=== PATIENT | male | born 2000 | race Caucasian/White ===

== ENCOUNTER 2023-12-23 14:29 | Emergency (ER) | payer OTHER, SELFPAY ==
[2023-12-23 14:41] VITALS: BP 102/48; PULSE 120; RESP 18; TEMP 38.2; O2SAT 96; BMI 21.9
--- NOTE | 2023-12-23 14:42 | ED_ITS ---
HPI - General Adult General Chief complaint: Upper Respiratory Symptoms Stated complaint: headache, body aches Time Seen by Provider: 12/23/23 17:52 Source: patient Mode of arrival: ambulatory Limitations: no limitations History of Present Illness HPI narrative: Patient is a 23-year-old male who presents emergency department with 3-4 days of body aches, intermittent headache, nonproductive cough, sneezing, sore throat, nausea without vomiting. Denies vision changes, neck pain, neck stiffness, dizziness, lightheadedness, chest pain, shortness of breath, abdominal pain, numbness or tingling of the extremities. Denies known sick contacts. Related Data Allergies Allergy/AdvReac Type Severity Reaction Status Date / Time No Known Allergies Allergy Verified 12/23/23 14:41 Review of Systems Review of Systems: Yes all other systems are reviewed and are negative [facility] Past Medical History Attestation statement: The following information was validated with the patient. Source: old records reviewed Social History Social History Advance Directives: No Advance Directives Information Provided: No Physical Exam ED Vital Signs: Vital Signs - 24 hr 12/23/23 14:41 12/23/23 17:25 Temperature 100.8 F H 98.9 F Pulse Rate 120 H 106 H Respiratory Rate 18 20 Blood Pressure 102/48 L 116/69 Pulse Oximetry 96 97 Oxygen Delivery Method Room Air Room Air BMI result Body Mass Index 21.9 Appearance: Alert.?Oriented to person, place and time. No acute distress.?Normal affect. Eyes: Pupils equal, round and reactive to light.? ENT: Pharynx erythematous without exudates. Uvula midline. No trismus. No drooling. TM normal bilaterally. Neck: Normal inspection.? Neck supple.??No cervical lymphadenopathy CVS: Heart sounds normal. Normal heart rate and rhythm.? Pulses normal.?? Respiratory: No respiratory distress.? Lung sounds clear to auscultation ervin aterally?? Abdomen: Soft and non-tender. Normoactive bowel sounds. No pulsatile mass.?? Skin: Skin warm and dry.? Normal skin color.? Normal skin turgor.?? Extremities: No lower extremity edema.? No calf ttp? Neuro: Moves all extremities spontaneously. Sensation intact bilaterally. CN II- XII intact. No focal neuro deficits. Ambulates with normal steady gait. Course Course Course Narrative: TIMMY- 23-year-old male presents for evaluation of body aches, cough, headache, fevers. Plan for viral swabs. Medications Administered Discontinued Medications Generic Name Dose Route Start Last Admin Trade Name Aramis PRN Reason Stop Dose Admin Acetaminophen 975 mg 12/23/23 14:44 12/23/23 14:46 Acetaminophen 325 Mg Tablet PO 12/23/23 14:45 975 mg ONCE ONE Administration Medical Decision Making Medical Decision Making [facility] Narrative: Patient is a 23 year old male presenting for evaluation of upper respiratory symptoms. COVID-19 testing negative. Influenza A testing positive, given duration of symptoms would be outside of the window to start Tamiflu. At this time history and physical exam not consistent with ACS/PE/pneumonia. Well- appearing, nontoxic or tachypnea/hypoxia. Initially febrile and tachycardic which improved after medicated, do not suspect bacterial sepsis infection but rather viral etiology with positive influenza. Speaking clear full sentences, ambulatory with steady gait. Discussed conservative treatment including rest, hydration, Tylenol/ibuprofen as needed for fever and body aches, saline nasal spray, humidifier, [id number] cold medication. Advised to follow-up with primary care provider as needed, discussed reasons to return back to the emergency department. All questions were answered. Patient discharged home in stable condition. Differential Diagnosis Differential Diagnoses: The differential diagnosis associated with the presentation includes ( See narrative above) Admission/Observation Consideration of admission/observation: Escalation of care including admission/observation considered ( see narrative above) Lab Data [facility] Lab Attestation statement: I reviewed the patient's lab results. ( see narrative above) Labs: Lab Results 12/23/23 Range/Units 17:22 COVID-19 (DANIEL) Negative (Negative) COVID-19 Clin Com See Note Influenza Type A (MARINA) Positive A (Negative) Influenza Type B (MARINA) Negative (Negative) Influenza A & B Note See Note External Record Review External record reviewed: Outpatient record Prescription Management I considered prescription management with: Pain Medication ( acetaminophen/ibuprofen) and Antiviral Discharge Plan Discharge Clinical Impression: Influenza Patient Disposition: Home, Self-Care Instructions: Influenza (ED) Additional Instructions: Be sure to rest, stay well hydrated drinking plenty of fluids, eat small frequent meals. Tylenol/ibuprofen can be used as needed for fever/pain. [id number] cold medications may be helpful as well for symptoms. Saline nasal spray, humidifier may be helpful for nasal congestion. You may return to the emergency department with any new or worsening symptoms or concerns. Follow-up with your primary care provider as needed. Should remain out of school/ work until symptoms have resolved and have been without a fever for 24 hours without the use of Tylenol or ibuprofen. Referrals: Physician,David J [Primary Care Provider] -
[2023-12-23] MEDS: Acetaminophen 325 MG TABLET 975 MG PO (14:46)
[2023-12-23 17:25] VITALS: BP 116/69; PULSE 106; RESP 20; TEMP 37.2; O2SAT 97
[2023-12-23 17:50] LABS: COVID-19 Test Negative (Negative); IDNOW Serial# 08D9AD1C; IDNOW Serial# 152EDE1D; Influenza A Positive (Negative); Influenza B2 Negative (Negative)
--- NOTE | 2023-12-23 18:55 | PC.NURSE ---
awaiting mssg from [facility] b provider as pt requesting work note but unsure how many days to give for flu.
[2023-12-23 18:56] VITALS: BP 129/60; PULSE 106; RESP 16; TEMP 37.6; O2SAT 98
[2023-12-23 19:11] VITALS: O2SAT 98
== END 2023-12-23 19:15 | disposition home or self-care (01) ==
PROVIDERS: Physician Assistant; Emergency Provider Emergency Medicine
DX: J10.1 Influenza due to other identified influenza virus with other respiratory manifestations (principal); R51.9 Headache, unspecified; M79.10 Myalgia, unspecified site; R05.9 Cough, unspecified; R11.2 Nausea with vomiting, unspecified; Z11.52 Encounter for screening for COVID-19
CPT/HCPCS: 87502; 87635; 99283; 99284